=== PATIENT | male | born 1970 | race Caucasian/White ===

== ENCOUNTER 2021-03-19 18:37 | Emergency (ER) | payer OTHER ==
[2021-03-19] MEDS ORDERED: Adenosine 6 MG/2 ML SDV IVPUSH ONE ×2 (19:00→19:01)
[2021-03-19] MEDS ORDERED: Sodium Chloride 0.9% 1,000 ML IV ONE (19:01)
--- NOTE | 2021-03-19 19:28 | EDM.PDOC ---
ED HPI GENERAL MEDICAL PROBLEM - General Chief Complaint: Chest Pain Stated Complaint: chest pain Time Seen by Provider: 03/19/21 18:47 - History of Present Illness INITIAL COMMENTS - FREE TEXT/NARRATIVE: 50-year-old male presents the emergency room with tachycardia. This started around 4:00 this afternoon. The patient's been treated for multiple episodes of SVT in the past. He is currently taking atenolol for this. He is on 25 mg a day and the dose is supposed to be increased. 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 Patient is diaphoretic generally uncomfortable and he has a little bit of substernal pressure. Patient denies any recent illnesses no fevers or chills Treatments [employer]Y: Reports: Other (see below) Other Treatments [employer]Y: Atenolol 50mg Mid-Sternal Chest Pain Score (Numeric/FACES): 7 - Related Data Allergies Allergy/AdvReac Type Severity Reaction Status Date / Time atorvastatin Allergy Body Aches Verified 03/19/21 18:53 pravastatin Allergy Body Aches Verified 03/19/21 18:53 Home Meds: Home Meds Aspirin [Adult Low Dose Aspirin EC] 81 mg PO DAILY 03/12/14 [History] Atenolol [Tenormin] 50 mg PO DAILY 03/12/14 [History] Cetirizine HCl [Zyrtec] 10 mg PO ASDIRECTED PRN 03/12/14 [History] Cholecalciferol (Vitamin D3) [Vitamin D3] 1,000 units PO DAILY 03/12/14 [History] Levothyroxine 112 mcg PO DAILY 03/12/14 [History] buPROPion [Wellbutrin XL] 450 mg PO DAILY 03/12/14 [History] Cyclobenzaprine [Flexeril] 10 mg PO TID 03/19/21 [History] Rosuvastatin [Crestor] 10 mg PO DAILY 03/19/21 [History] Past Medical History HEENT History: Reports: Impaired Vision Cardiovascular History: Reports: Other (See Below) Other Cardiovascular History: SVT Respiratory History: Reports: Other (See Below) Other Respiratory History: seasonal allergies Gastrointestinal History: Reports: GERD Endocrine/Metabolic History: Reports: Hypothyroidism - Past Surgical History HEENT Surgical History: Reports: Tonsillectomy, Other (See Below) ED ROS GENERAL - Review of Systems Review Of Systems: See Below Constitutional: Reports: No Symptoms HEENT: Reports: No Symptoms Respiratory: Reports: Shortness of Breath Cardiovascular: Reports: Chest Pain, Other (Diaphoretic) Endocrine: Reports: No Symptoms GI/Abdominal: Reports: No Symptoms : Reports: No Symptoms Musculoskeletal: Reports: No Symptoms Skin: Reports: No Symptoms Neurological: Reports: No Symptoms Psychiatric: Reports: No Symptoms ED EXAM, GENERAL - Physical Exam Exam: See Below Exam Limited By: No Limitations General Appearance: Mild Distress (Is diaphoretic and uncomfortable but very cooperative) Eye Exam: Bilateral Eye: Normal Inspection Ears: Normal External Exam, Normal Canal, Hearing Grossly Normal, Normal TMs Nose: Normal Inspection, Normal Mucosa, No Blood Throat/Mouth: Normal Inspection, Normal Lips, Normal Teeth, Normal Gums, Normal Oropharynx, Normal Voice, No Airway Compromise Head: Atraumatic, Normocephalic Neck: Normal Inspection, Supple, Non-Tender, Full Range of Motion Respiratory/Chest: No Respiratory Distress, Lungs Clear, Normal Breath Sounds Cardiovascular: No Edema, No Murmur, Tachycardia (150s) GI/Abdominal: Normal Bowel Sounds, Soft, Non-Tender Neurological: Alert, Oriented, Normal Cognition #1 Interpretation EKG Date: 03/19/21 Rhythm: Other (SVT) Rate (Beats/Min): 153 [place]: LAD-Left [place] Deviation P-Wave: Absent (Most likely buried in the T wave) QRS: Other (Poor R wave progression precordial leads) ST-T: Other (ST changes most likely related to tachycardia) QT: Normal EKG Interpretation Comments: Abnormal SVT #2 Interpretation EKG Date: 03/19/21 Rhythm: NSR [place]: LAD-Left [place] Deviation P-Wave: Present QRS: Other (Poor R wave progression precordial leads low voltage) ST-T: Other (ST-T wave changes most likely related to tachycardia have resolved he is got inverted T waves in leads III and aVF) QT: Normal Comparison: Change From Previous EKG (Resolved SVT) EKG Interpretation Comments: Abnormal EKG Course - Vital Signs Last Recorded V/S: Last Vital Signs Temp 30.0 C L 03/19/21 18:58 Pulse 155 H 03/19/21 18:58 Resp 18 03/19/21 18:58 BP 112/90 03/19/21 18:58 Pulse Ox 98 03/19/21 18:58 - Orders/Labs/Meds Orders: Active Orders 24 hr Category Date Time Status EKG 12 Lead [EKG Documentation Completion] [RC] STAT Care 03/19/21 18:45 Active EKG Documentation Completion [RC] ASDIRECTED Care 03/19/21 18:10 Active Chest 1V Frontal [CR] Stat Exams 03/19/21 19:19 Taken Labs: Laboratory Tests 03/19/21 03/19/21 03/19/21 Range/Units 18:50 18:50 18:50 WBC 12.20 H (4.23-9.07) K/mm3 RBC 6.25 H (4.63-6.08) M/mm3 Hgb 17.7 H (13.7-17.5) gm/dl Hct 52.6 H (40.1-51.0) % MCV 84.2 (79.0-92.2) fl MCH 28.3 (25.7-32.2) pg MCHC 33.7 (32.2-35.5) g/dl RDW Std Deviation 42.8 (35.1-43.9) fL Plt Count 342 H (163-337) K/mm3 MPV 11.5 (9.4-12.3) fl Neut % (Auto) 65.0 (34.0-67.9) % Lymph % (Auto) 25.3 (21.8-53.1) % [place] % (Auto) 8.2 (5.3-12.2) % Eos % (Auto) 0.9 (0.8-7.0) Baso % (Auto) 0.4 (0.1-1.2) % Neut # (Auto) 7.92 H (1.78-5.38) K/mm3 Lymph # (Auto) 3.09 (1.32-3.57) K/mm3 [place] # (Auto) 1.00 H (0.30-0.82) K/mm3 Eos # (Auto) 0.11 (0.04-0.54) K/mm3 Baso # (Auto) 0.05 (0.01-0.08) K/mm3 Manual Slide Review PT 11.1 (9.7-12.0) SECONDS INR 1.04 APTT 24.7 (21.7-31.4) SECONDS Sodium 146 H (136-145) mEq/L Potassium 5.1 (3.5-5.1) mEq/L Chloride 107 (98-107) mEq/L Carbon Dioxide 28 (21-32) mEq/L Anion Gap 16.1 H (5-15) BUN 24 H (7-18) mg/dL Creatinine 2.0 H (0.7-1.3) mg/dL Est Cr Clr Drug Dosing 44.68 mL/min Estimated GFR (MDRD) 36 (>60) mL/min BUN/Creatinine Ratio 12.0 L (14-18) Glucose 116 H (70-99) mg/dL Calcium 9.7 (8.5-10.1) mg/dL Magnesium 2.4 (1.8-2.4) mg/dL Total Bilirubin 0.7 (0.2-1.0) mg/dL AST 37 (15-37) U/L ALT 62 (16-63) U/L Alkaline Phosphatase 64 (46-116) U/L Troponin I < 0.017 (0.00-0.056) ng/mL Total Protein 8.3 H (6.4-8.2) g/dl Albumin 4.5 (3.4-5.0) g/dl Globulin 3.8 gm/dL Albumin/Globulin Ratio 1.2 (1-2) Meds: Medications Discontinued Medications Generic Name Dose Route Start Last Admin Trade Name Freq PRN Reason Stop Dose Admin Adenosine 6 mg 03/19/21 19:00 03/19/21 19:08 Adenosine 6 Mg/2 Ml Sdv IVPUSH 03/19/21 19:01 6 mg NOW ONE Administration Adenosine 12 mg 03/19/21 19:01 03/19/21 19:10 Adenosine 6 Mg/2 Ml Sdv IVPUSH 03/19/21 19:02 12 mg NOW ONE Administration Sodium Chloride 1,000 mls @ 999 mls/hr 03/19/21 19:01 03/19/21 19:16 Normal Saline IV 03/19/21 20:01 150 mls/hr ONETIME ONE Infusion - Re-Assessments/Exams Free Text/Narrative Re-Assessment/Exam: 03/19/21 19:27 The patient received 6 mg of adenosine and this did not help with this was followed up with 12 mg of adenosine he had a successful chemical cardioversion yielding a sinus rhythm rate in the 80s patient feels much better. 03/19/21 20:58 Chest x-ray is unremarkable no acute changes suboptimal inspiration. Laboratory evaluation is nondiagnostic troponin normal. At this point the patient feels great and really wants to go did offer checking a second troponin he would like to defer this. Patient received recently had his atenolol increased to take effect this he will call Ninfa Gaspar on Monday for follow-up 03/19/21 21:07 Departure - Departure Time of Disposition: 21:00 Disposition: Home, Self-Care 01 Clinical Impression: Supraventricular tachycardia - Discharge Information Referrals: Zeina Guzman PA-C [Primary Care Provider] - Forms: ED Department Discharge Additional Instructions: Return to the emergency room with any questions problems or worsening symptoms. Follow-up with cardiology on Monday. Since her atenolol dose was just changed we will not make any changes at this time. Sepsis Event Note (ED) - Evaluation Sepsis Screening Result: No Definite Risk - Focused Exam Vital Signs: Vital Signs Temp Pulse Resp BP Pulse Ox 03/19/21 18:58 30.0 C L 155 H 18 112/90 98 - My Orders Last 24 Hours: My Active Orders 03/19/21 18:10 EKG Documentation Completion [RC] ASDIRECTED 03/19/21 18:45 EKG 12 Lead [EKG Documentation Completion] [RC] STAT 03/19/21 19:19 Chest 1V Frontal [CR] Stat - Assessment/Plan Last 24 Hours: My Active Orders 03/19/21 18:10 EKG Documentation Completion [RC] ASDIRECTED 03/19/21 18:45 EKG 12 Lead [EKG Documentation Completion] [RC] STAT 03/19/21 19:19 Chest 1V Frontal [CR] Stat
[2021-03-19 23:07] VITALS: BP 133/81; PULSE 70
--- NOTE | 2021-03-20 07:27 | CR ---
Chest: Portable view of the chest was dating. Comparison: Prior chest x-ray 10/15/10. Findings: Heart size and mediastinum are within normal limits for portable technique. Slight linear densities are noted within the lateral left costophrenic angle compatible with slight scarring. Lungs otherwise are clear with no acute parenchymal change. No acute osseous abnormalities are seen. Impression: 1. Nothing acute is seen on portable chest x-ray. Diagnostic code #2
== END 2021-03-19 21:23 | disposition home or self-care (01) ==
LOC: JD.ED 18:37
DX: I47.1 Supraventricular tachycardia (principal); E03.9 Hypothyroidism, unspecified; Z79.899 Other long term (current) drug therapy; Z79.82 Long term (current) use of aspirin
CPT/HCPCS: 36415; 71045; 80053; 83735; 84484; 85025; 85610; 85730; 93005; 96374; 99285; J0153; J7030; 93010; 99284